=== PATIENT | male | born 1980 ===

== ENCOUNTER 2020-03-23 12:33 | Outpatient (REF) | payer SELFPAY ==
[2020-03-26 19:23] LABS: SARS-CoV-2 RNA Undetected (Undetected); SARS-CoV-2 Specimen Source Nasopharynx
== END 2020-03-23 12:53 ==
LOC: LBN 12:33
PROVIDERS: Visit Provider Nurse Practitioner Adult Health
DX: Z11.59 Encounter for screening for other viral diseases (principal)
CPT/HCPCS: U0003